=== PATIENT | female | born 1955 | race Caucasian/White ===

== ENCOUNTER 2017-12-11 07:36 | Day surgery (SDC) | payer BC ==
[2017-12-10 16:37] VITALS: BMI 32.8
[2017-12-11] MEDS ORDERED: PROPOFOL 20 ML ONE (09:01)
[2017-12-11] MEDS ORDERED: LIDOCAINE HCL/PF 2% SDV 5ML VIAL ONE (09:01)
[2017-12-11 09:47] VITALS: TEMP 98.8
[2017-12-11 10:43] VITALS: BP 121/69; PULSE 62
== END 2017-12-11 10:57 | disposition home or self-care (01) ==
LOC: JASU-ENDO 07:36
PROVIDERS: ATTEND Internal Medicine Gastroenterology
PROC: 0DBN8ZX Excision of Sigmoid Colon, Via Natural or Artificial Opening Endoscopic, Diagnostic (ICD-10-PCS; principal; 2017-12-11 09:00)
DX: Z12.11 Encounter for screening for malignant neoplasm of colon (principal); D12.5 Benign neoplasm of sigmoid colon; K57.30 Diverticulosis of large intestine without perforation or abscess without bleeding; K64.8 Other hemorrhoids
CPT/HCPCS: 88305-TC

== ENCOUNTER 2021-02-12 09:28 | Emergency (ER) | payer OTHER, MEDICARE ==
[2021-02-12 09:43] VITALS: BMI 32.5
[2021-02-12 13:36] LABS: BASO % 0.9 % (0-2.0); EOS % 0.7 % (0-4.5); HEMATOCRIT 45.9 % (32.4-45.2); HEMOGLOBIN 15.9 GM/dL (10.7-15.3); MCH 31.1 pg (25.7-33.7); MCHC 34.6 g/dl (32.0-36.0); MEAN PLT VOLUME 8.9 fl (7.5-11.1); MONO % 7.9 % (3.8-10.2); NEUT % 62.5 % (42.8-82.8); PLATELET COUNT 218 10^3/uL (134-434); RBC 5.11 M/mm3 (3.60-5.2); RDW 12.9 % (11.6-15.6); WHITE BLOOD COUNT 7.6 K/mm3 (4.0-10.0)
[2021-02-12 14:01] LABS: CALCIUM 9.9 mg/dL (8.5-10.1)
[2021-02-12 14:02] LABS: BLOOD UREA NITROGEN 13.5 mg/dL (7-18)
[2021-02-12 14:05] LABS: CREATININE 0.9 mg/dL (0.55-1.3)
[2021-02-12 14:06] LABS: BILIRUBIN,TOTAL 0.7 mg/dL (0.2-1); TOT PROT 7.3 g/dl (6.4-8.2)
[2021-02-12 15:05] VITALS: BP 151/80; PULSE 72; TEMP 98.6
== END 2021-02-12 15:15 | disposition home or self-care (01) ==
LOC: JER 09:28
DX: N12 Tubulo-interstitial nephritis, not specified as acute or chronic (principal); R10.84 Generalized abdominal pain; K59.00 Constipation, unspecified
CPT/HCPCS: 36415; 74176-TC; 80053; 85025; 99284-25; Q9967

== ENCOUNTER 2023-03-03 13:03 | Emergency (ER) | payer OTHER, MEDICARE ==
[2023-03-03 13:17] VITALS: BP 157/75; PULSE 85; RESP 18; TEMP 98.2; BMI 31.8
[2023-03-03 14:52] LABS: BASO % 0.9 % (0-2.0); EOS % 0.4 % (0-4.5); HEMATOCRIT 47.4 % (32.4-45.2); HEMOGLOBIN 16.6 GM/dL (10.7-15.3); LYMPH % 20.2 % (8-40); MCH 31.2 pg (25.7-33.7); MCHC 35.1 g/dl (32.0-36.0); MEAN PLT VOLUME 8.3 fl (7.5-11.1); MONO % 5.2 % (3.8-10.2); NEUT % 73.3 % (42.8-82.8); PLATELET COUNT 221 10^3/uL (134-434); RBC 5.33 M/mm3 (3.60-5.2); WHITE BLOOD COUNT 8.4 K/mm3 (4.0-10.0)
[2023-03-03 15:23] LABS: POTASSIUM 4.8 mmol/L (3.5-5.1)
[2023-03-03 15:25] LABS: CALCIUM 9.8 mg/dL (8.5-10.1)
[2023-03-03 15:26] LABS: BLOOD UREA NITROGEN 10.1 mg/dL (7-18)
[2023-03-03 15:28] LABS: CREATININE 0.8 mg/dL (0.55-1.3)
[2023-03-03 15:29] LABS: BILIRUBIN,TOTAL 0.6 mg/dL (0.2-1); TOT PROT 7.4 g/dl (6.4-8.2)
== END 2023-03-03 17:09 | disposition home or self-care (01) ==
LOC: JER 13:03
DX: I10 Essential (primary) hypertension (principal); R55 Syncope and collapse; R25.1 Tremor, unspecified
CPT/HCPCS: 36415; 80053; 84484; 85025; 93005; 93010; 99284-25

== ENCOUNTER 2023-11-18 08:21 | Inpatient (IN) | payer OTHER, MEDICARE ==
[2023-11-18 09:57] LABS: BASO % 1.4 % (0-2.0); EOS % 1.4 % (0-4.5); HEMATOCRIT 46.4 % (32.4-45.2); HEMOGLOBIN 15.7 GM/dL (10.7-15.3); LYMPH % 25.2 % (8-40); MCH 30.7 pg (25.7-33.7); MCHC 33.8 g/dl (32.0-36.0); MEAN CELL VOLUME 90.8 fl (80-96); MEAN PLT VOLUME 8.5 fl (7.5-11.1); MONO % 8.1 % (3.8-10.2); NEUT % 63.9 % (42.8-82.8); PLATELET COUNT 236 10^3/uL (134-434); RBC 5.11 M/mm3 (3.60-5.2); RDW 13.3 % (11.6-15.6); WHITE BLOOD COUNT 9.1 K/mm3 (4.0-10.0)
[2023-11-18 10:12] LABS: POTASSIUM 3.5 mmol/L (3.5-5.1)
[2023-11-18 10:14] LABS: CALCIUM 9.5 mg/dL (8.5-10.1)
[2023-11-18 10:15] LABS: ALBUMIN 3.7 g/dl (3.4-5.0)
[2023-11-18 10:18] LABS: CREATININE 0.8 mg/dL (0.55-1.3)
[2023-11-18 10:20] LABS: BILIRUBIN,TOTAL 0.9 mg/dL (0.2-1); TOT PROT 7.3 g/dl (6.4-8.2)
[2023-11-18] MEDS ORDERED: BUPIVACAINE HCL/PF 0.25% (2.5MG/ML) 10 ML VIAL ONE (15:15)
[2023-11-18] MEDS: CIPROFLOXACIN 400 MG/D5W 400 MG/200 ML IVPB IVPB ONE (15:59)
[2023-11-18 18:54] VITALS: BMI 31.5
[2023-11-19] MEDS ORDERED: ACETAMINOPHEN 1000 MG/100 ML BAG IVPB PRN (10:29)
[2023-11-19] MEDS: LACTATED RINGERS SOLUTION 1,000 ML/1,000 ML INFUS.BAG IV SCH ×2 (11:25→18:00)
[2023-11-19] MEDS: HYDROCHLOROTHIAZIDE 12.5 MG CAPSULE (FP) PO SCH (14:14)
[2023-11-19] MEDS: LOSARTAN POTASSIUM 50 MG TABLET PO SCH (14:14)
[2023-11-19] MEDS ORDERED: ONDANSETRON 4 MG/2 ML VIAL IVPUSH PRN ×2 (14:27→16:53)
[2023-11-19] MEDS ORDERED: BUPIVACAINE HCL/PF 0.25% (2.5MG/ML) 10 ML VIAL ONE (14:29)
[2023-11-19] MEDS ORDERED: LACTATED RINGERS SOLUTION 1,000 ML IV SCH (14:30)
[2023-11-19] MEDS ORDERED: PROPOFOL 20 ML ONE (14:45)
[2023-11-19] MEDS ORDERED: ROCURONIUM BROMIDE 50 MG/5 ML SYRINGE ONE (14:46)
[2023-11-19] MEDS ORDERED: MIDAZOLAM HCL 2 MG/2 ML SINGLE DOSE VIAL ONE (14:46)
[2023-11-19] MEDS ORDERED: ONDANSETRON 4 MG/2 ML VIAL ONE (14:46)
[2023-11-19] MEDS ORDERED: LIDOCAINE HCL/PF 2% SDV 5ML VIAL ONE (14:46)
[2023-11-19] MEDS ORDERED: SUGAMMADEX SODIUM 200 MG/2 ML VIAL ONE (14:46)
[2023-11-19] MEDS ORDERED: DEXAMETHASONE SOD PHOSPHATE 4 MG/1 ML VIAL ONE (14:46)
[2023-11-19] MEDS ORDERED: SEVOFLURANE 250 ML BTL ONE (15:12)
[2023-11-19] MEDS ORDERED: KETOROLAC TROMETHAMINE 30 MG/1 ML VIAL ONE (15:15)
[2023-11-19] MEDS: BUPIVACAINE HCL/PF 0.25% (2.5MG/ML) 10 ML VIAL IJ ONE (15:21)
[2023-11-19] MEDS: LACTATED RINGERS SOLUTION 1,000 ML IV ONE (16:40)
[2023-11-19] MEDS ORDERED: oxyCODONE HCL 5 MG TABLET PO PRN (16:49)
[2023-11-19] MEDS: ACETAMINOPHEN 1000 MG/100 ML BAG IVPB SCH (17:00)
[2023-11-19 18:10] VITALS: RESP 18
[2023-11-20 10:00] LABS: BASO % 0.2 % (0-2.0); HEMATOCRIT 40.3 % (32.4-45.2); HEMOGLOBIN 14.1 GM/dL (10.7-15.3); MCH 31.2 pg (25.7-33.7); MEAN CELL VOLUME 88.9 fl (80-96); MEAN PLT VOLUME 8.6 fl (7.5-11.1); MONO % 7.1 % (3.8-10.2); NEUT % 78.7 % (42.8-82.8); PLATELET COUNT 245 10^3/uL (134-434); RBC 4.53 M/mm3 (3.60-5.2); RDW 12.8 % (11.6-15.6); WHITE BLOOD COUNT 11.8 K/mm3 (4.0-10.0)
[2023-11-20] MEDS ORDERED: ATORVASTATIN CA 10 MG TABLET (FP) PO SCH (10:00)
[2023-11-20] MEDS ORDERED: PANTOPRAZOLE SODIUM 40 MG VIAL IVPUSH SCH (10:00)
[2023-11-20] MEDS: HYDROCHLOROTHIAZIDE 12.5 MG CAPSULE (FP) PO SCH (10:00)
[2023-11-20] MEDS: LOSARTAN POTASSIUM 50 MG TABLET PO SCH (10:00)
[2023-11-20 10:17] LABS: ALBUMIN 3.4 g/dl (3.4-5.0); BLOOD UREA NITROGEN 10.9 mg/dL (7-18); CALCIUM 8.8 mg/dL (8.5-10.1)
[2023-11-20 10:20] LABS: CREATININE 0.9 mg/dL (0.55-1.3); PHOSPHOROUS 2.7 mg/dL (2.5-4.9)
[2023-11-20 10:21] LABS: BILIRUBIN,TOTAL 0.6 mg/dL (0.2-1); TOT PROT 6.6 g/dl (6.4-8.2)
[2023-11-20] MEDS: ACETAMINOPHEN 500 MG TABLET (FP) PO SCH ×2 (15:02→15:44)
[2023-11-20] MEDS: ATORVASTATIN CA 10 MG TABLET (FP) PO SCH (21:21)
[2023-11-20] MEDS: POLYETHYLENE GLYCOL (HEALTHYLAX) 3350 17 GM PACKET PO SCH (21:21)
[2023-11-20] MEDS: IBUPROFEN 600 MG TABLET (FP) PO PRN (22:51)
[2023-11-21 10:27] VITALS: BP 131/87; PULSE 72; TEMP 98.4
== END 2023-11-21 14:04 | disposition home or self-care (01) | DRG 337 ==
LOC: JER 08:21 → JERBED 16:06 → J8W 18:00
PROVIDERS: ADMIT Surgery; ATTEND Internal Medicine
PROC: 0DTJ4ZZ Resection of Appendix, Percutaneous Endoscopic Approach (ICD-10-PCS; 2023-11-19)
PROC: 0DN84ZZ Release Small Intestine, Percutaneous Endoscopic Approach (ICD-10-PCS; 2023-11-19)
PROC: 0DNU4ZZ Release Omentum, Percutaneous Endoscopic Approach (ICD-10-PCS; principal; 2023-11-19 15:30)
DX: K35.80 Unspecified acute appendicitis (principal); I10 Essential (primary) hypertension; E78.5 Hyperlipidemia, unspecified; K21.9 Gastro-esophageal reflux disease without esophagitis; K66.0 Peritoneal adhesions (postprocedural) (postinfection)
CPT/HCPCS: 36415; 74177-TC; 80053; 83605; 83735; 84100; 85025; 85730; 86850; 86900; 86901; 88304-TC; 94760; 97116-GP; 97161-GP; 99285-25; J0131

== ENCOUNTER 2024-09-02 05:33 | Day surgery (SDC) | payer OTHER, MEDICARE ==
[2024-08-25 13:14] VITALS: BMI 33.8
[2024-09-02 11:35] VITALS: TEMP 97.9
[2024-09-02 16:07] VITALS: BP 129/84; PULSE 73; RESP 18
== END 2024-09-02 12:30 | disposition home or self-care (01) ==
LOC: JASU-ENDO 05:33
PROVIDERS: ATTEND Internal Medicine Gastroenterology
PROC: 0DBH8ZX Excision of Cecum, Via Natural or Artificial Opening Endoscopic, Diagnostic (ICD-10-PCS; principal; 2024-09-02 11:00)
DX: Z12.11 Encounter for screening for malignant neoplasm of colon (principal); D12.0 Benign neoplasm of cecum; K64.8 Other hemorrhoids; K57.30 Diverticulosis of large intestine without perforation or abscess without bleeding; Z86.0101 Personal history of adenomatous and serrated colon polyps
CPT/HCPCS: 88305-TC